=== PATIENT | female | born 1955 | race Caucasian/White ===

== ENCOUNTER → 2017-12-22 | Day surgery (SDC) | payer OTHER ==
[~2017-12-22] VITALS: Ht 172.7 cm; Wt 77.1 kg
[~2017-12-22] MED LIST: PERCOCET 5-3251 EACH PO
--- NOTE | 2017-12-22 18:29 | Operative Report ---
Operative/Inv Procedure Report Surgery Date: 12/22/17 Name of Procedure: Robotic laparoscopic peritoneal flap mesh repair of incarcerated ventral hernia. Pre-Operative Diagnosis: Incarcerated ventral hernia Post-Operative Diagnosis: Same, with a few smaller adjacent defects Estimated Blood Loss: scant Surgeon/Floral Decorator: Nimisha OLMEDO,HAMMAD Brandt Anesthesia: general endotracheal tube Operative/Procedure Note Note: Patient was positioned supine on the table. After successful induction of general anesthesia the abdomen was clipped prepped and draped in usual sterile fashion. The abdominal skin is marked to guide where the mesh will lay, centered under the defect, and where the 3 8 mm robotic trochars will be positioned, centered in the left lateral abdomen aiming just above the umbilicus. After injection of local anesthetic at a spot in the mid to lateral left subcostal area, a horizontal 1 cm incision was made with a 15 blade. Using the plastic pointed-tipped translucent 8 mm with a metal robotic trocar and the camera inserted, the abdominal wall was traversed through this incision, watching on the screen, as the trocar passes through the layers, alternating colors, yellow fat white fascia red muscle, until the tip just seems to chiu the inner thin peritoneal layer. At that point, I stop pushing and check if it's open by turning on the gas. If the belly insufflates then you know you can advance that large trocar into an empty space more directly without injuring the viscera. The gas was turned on to 15 mm. At this point you can see the umbilical ventral defect, the incarcerated fat and omentum was reduced. Next the 2 remaining 8 mm robotic trochars are placed The robot then is brought to the patient attached docked and targeted. Then the peritoneal flap is started by scoring it measuring roughly 6 cm from the defect and then completing the incision with cautery keeping the flap thin paying particular care to not include the transversalis fascia or even the rectus sheath posterior leaf, and continuing that flap across past the defect also on that side at least 6 cm, the defect was approximately 2, During this dissection you could see there was a smaller defect just inferior to the main one. There was a small opening created in the flap in the midline this was closed with a 3-0 Vicryl suture, and then the main hernia defect, including an adjacent smaller one inferiorly, was then closed with a running continuous 0 V lock, absorbable. We then chose a Velcro type of mesh not coated sized it to 12 cm marked the rough surface rolled up like a scroll and stuffed down one of the trochars centered it the mesh laid nicely and flat and then we closed it with a running 2-0 V lock suture. Next we checked for hemostasis and then undocked letting the gas escape pulling out the instruments and the trochars these 3 incisions were small but where we could see fascia it was closed with 2-0 Vicryl suture, then closed the skin with subcuticular 4-0 Monocryl, and then Mastisol, Steri-Strips and Band-Aids. Overall estimated blood loss was minimal, lap and sponge counts were correct, wound expectancy was clean, IV fluids crystalloid, complications none, patient tolerated the procedure well, did not significantly joseph during extubation and was returned to the recovery room in satisfactory condition.
== END ==
LOC: STS 02:46
DX: K43.6 Other and unspecified ventral hernia with obstruction, without gangrene (principal); F17.200 Nicotine dependence, unspecified, uncomplicated
CPT/HCPCS: 49653; 64488; S2900; 93005; 93010; C1781; C9290; J0690; J2250; J3490